=== PATIENT | female | born 1995 | race Two or more races ===

== ENCOUNTER 2016-08-10 15:02 | Emergency (ER) | payer MEDICAID ==
[~2016-08-10] VITALS: Ht 157.5 cm; Wt 55.8 kg
[2016-08-10 16:01] LABS: BASOPHIL % 0.3 % (0-2); PLATELET COUNT 247 x10^3mcL (130-400); RED CELL DISTRIBUTION WIDTH 14.7 % (11.5-14.5)
[2016-08-10 16:13] LABS: CALCIUM 9.6 mg/dL (8.5-10.1); CARBON DIOXIDE 34.3 mmol/L (21-32); CHLORIDE SERUM 97 mmol/L (98-107); CREATININE SERUM 0.7 mg/dL (0.6-1.0); GFR1 > 60 mL/min; GLUCOSE SERUM 117 mg/dL (74-106); POTASSIUM SERUM 3.5 mmol/L (3.5-5.1); SODIUM SERUM 139 mmol/L (136-145)
[2016-08-10 16:17] LABS: ALBUMIN 4.5 g/dL (3.4-5.0); ALKALINE PHOSPHATASE 60 U/L (46-116); ALT/SGPT 25 U/L (14-59); AST/SGOT 27 U/L (15-37); BILIRUBIN TOTAL 0.85 mg/dL (0.20-1.00); LIPASE 124 IU/L (73-393); TOTAL PROTEIN, SERUM 8.6 g/dL (6.4-8.2)
[2016-08-10 18:10] LABS: AMPHETAMINE QUAL UR NONE DETECTED (NEG <=1000)
[2016-08-10 19:12] VITALS: BP 141/95
== END 2016-08-10 19:12 | disposition home or self-care (01) ==
LOC: ED 15:02
PROVIDERS: Emergency Medicine
DX: K29.00 Acute gastritis without bleeding (principal); R11.10 Vomiting, unspecified; E86.0 Dehydration
CPT/HCPCS: 80307; J1885; J2405; J2765

== ENCOUNTER 2017-12-27 18:35 | Inpatient (IN) | payer MEDICAID ==
[~2017-12-27] VITALS: Ht 157.5 cm; Wt 52.2 kg
[2017-12-27 18:44] VITALS: Ht 157.5 cm; Wt 52.2 kg
[2017-12-27 19:42] LABS: CALCIUM 9.2 mg/dL (8.5-10.1); CARBON DIOXIDE 23.7 mmol/L (21-32); CHLORIDE SERUM 104 mmol/L (98-107); CREATININE SERUM 0.7 mg/dL (0.6-1.0); GFR1 > 60 mL/min; GLUCOSE SERUM 143 mg/dL (74-106); PLATELET COUNT 187 x10^3mcL (130-400); RED CELL DISTRIBUTION WIDTH 13.6 % (11.5-14.5); SODIUM SERUM 142 mmol/L (136-145)
[2017-12-27 19:49] LABS: ALBUMIN 4.4 g/dL (3.4-5.0); ALKALINE PHOSPHATASE 53 U/L (46-116); ALT/SGPT 20 U/L (14-59); AST/SGOT 10 U/L (15-37); BILIRUBIN TOTAL 0.5 mg/dL (0.20-1.00); LIPASE 69 IU/L (73-393); TOTAL PROTEIN, SERUM 8.1 g/dL (6.4-8.2)
[2017-12-27 20:02] LABS: BAND NEUTROPHIL 1 % (0-10); MONOCYTE 2 % (0-7); SEGMENTED NEUTROPHILS 84 % (37-75); rbc morphology (normal/abnorm) NORMAL (NORMAL)
[2017-12-27 20:03] LABS: PLATELET MORPHOLOGY PLATELETS NORMAL
[2017-12-27 21:06] LABS: UA SPECIFIC GRAVITY 1.025 (1.005-1.035); microscopic required? YES; urine erythrocyte 2+ (NEGATIVE)
[2017-12-27 21:14] LABS: AMPHETAMINE QUAL UR NONE DETECTED (See below)
[2017-12-27 23:11] VITALS: BP 115/68
[2017-12-28 00:34] LABS: T3 TOTAL 0.78 ng/mL
[2017-12-28 00:36] LABS: FREE T4 1.02 ng/dL (0.76-1.46); FREE THYROXINE INDEX 2.6 ug/dL (1.4-4.5)
[2017-12-28 05:54] VITALS: BP 89/39
[2017-12-28 06:28] LABS: CALCIUM 8.1 mg/dL (8.5-10.1); CARBON DIOXIDE 25.2 mmol/L (21-32); CHLORIDE SERUM 108 mmol/L (98-107); CREATININE SERUM 0.6 mg/dL (0.6-1.0); GFR1 > 60 mL/min; GLUCOSE SERUM 104 mg/dL (74-106); POTASSIUM SERUM 3.4 mmol/L (3.5-5.1); SODIUM SERUM 140 mmol/L (136-145)
[2017-12-28 06:50] LABS: BASOPHIL % 0.2 % (0-2); PLATELET COUNT 141 x10^3mcL (130-400); RED CELL DISTRIBUTION WIDTH 13.9 % (11.5-14.5)
[2017-12-28 08:33] VITALS: BP 113/78
[2017-12-28 10:06] VITALS: BP 121/64
[2017-12-28 17:14] VITALS: BP 109/68
[2017-12-28 21:56] VITALS: BP 134/73
[2017-12-29 05:26] VITALS: BP 126/79
[2017-12-29 06:24] LABS: CALCIUM 8.8 mg/dL (8.5-10.1); CARBON DIOXIDE 28.4 mmol/L (21-32); CHLORIDE SERUM 104 mmol/L (98-107); CREATININE SERUM 0.6 mg/dL (0.6-1.0); GFR1 > 60 mL/min; GLUCOSE SERUM 106 mg/dL (74-106); MAGNESIUM 1.9 mg/dL (1.8-2.4); PHOSPHOROUS 3.3 mg/dL (2.5-4.9); POTASSIUM SERUM 3.8 mmol/L (3.5-5.1); SODIUM SERUM 139 mmol/L (136-145)
[2017-12-29 06:26] LABS: PLATELET COUNT 143 x10^3mcL (130-400); RED CELL DISTRIBUTION WIDTH 14.4 % (11.5-14.5)
[2017-12-29 06:37] LABS: BASOPHIL % 0 % (0-2)
[2017-12-29 09:50] VITALS: BP 145/96
[2017-12-29] MEDS ORDERED: ZOF4 PO (11:39)
[2017-12-29 12:22] VITALS: BP 145/96
== END 2017-12-29 13:05 | disposition home or self-care (01) | DRG 776 ==
LOC: ED 18:35 → MU 22:08
PROVIDERS: Emergency Medicine; Family Medicine
DX: F12.188 Cannabis abuse with other cannabis-induced disorder (principal); N17.0 Acute kidney failure with tubular necrosis; R80.9 Proteinuria, unspecified; R11.10 Vomiting, unspecified; E87.6 Hypokalemia; D72.829 Elevated white blood cell count, unspecified; R63.4 Abnormal weight loss; L65.9 Nonscarring hair loss, unspecified; Z68.20 Body mass index [BMI] 20.0-20.9, adult
CPT/HCPCS: 84439; G0480; J1630; J2060; J2405; J2550; J3490; J7030; J7040; Q0092

== ENCOUNTER 2017-12-30 07:35 | Emergency (ER) | payer MEDICAID ==
[~2017-12-30] VITALS: Ht 157.5 cm; Wt 50.5 kg
[~2017-12-30 07:35] MED LIST: ZOF4 PO
[2017-12-30 07:41] VITALS: Ht 157.5 cm; Wt 50.5 kg
[2017-12-30 08:24] LABS: BASOPHIL % 0.2 % (0-2); PLATELET COUNT 154 x10^3mcL (130-400); RED CELL DISTRIBUTION WIDTH 13.8 % (11.5-14.5)
[2017-12-30 08:29] LABS: CALCIUM 9.1 mg/dL (8.5-10.1); CARBON DIOXIDE 30.9 mmol/L (21-32); CHLORIDE SERUM 100 mmol/L (98-107); CREATININE SERUM 0.6 mg/dL (0.6-1.0); GFR1 > 60 mL/min; GLUCOSE SERUM 110 mg/dL (74-106); POTASSIUM SERUM 3.1 mmol/L (3.5-5.1); SODIUM SERUM 139 mmol/L (136-145)
[2017-12-30 08:33] LABS: ALBUMIN 3.9 g/dL (3.4-5.0); ALKALINE PHOSPHATASE 40 U/L (46-116); ALT/SGPT 23 U/L (14-59); AST/SGOT 9 U/L (15-37); LIPASE 104 IU/L (73-393); TOTAL PROTEIN, SERUM 7.5 g/dL (6.4-8.2)
[2017-12-30 10:44] VITALS: BP 139/77
== END 2017-12-30 11:26 | disposition home or self-care (01) ==
LOC: ED 07:35
PROVIDERS: Emergency Medicine
DX: F12.188 Cannabis abuse with other cannabis-induced disorder (principal); E87.6 Hypokalemia
CPT/HCPCS: J1630; J7030

== ENCOUNTER 2019-11-08 20:29 | Emergency (ER) | payer OTHER, SELFPAY ==
[~2019-11-08] VITALS: Ht 157.5 cm; Wt 56.7 kg
[2019-11-08 20:40] VITALS: BP 109/73; Ht 157.5 cm; Wt 56.7 kg
== END 2019-11-09 00:10 | disposition left against medical advice (07) ==
LOC: ED 20:29
DX: Z53.21 Procedure and treatment not carried out due to patient leaving prior to being seen by health care provider (principal)